=== PATIENT | female | born 1960 | race Caucasian/White ===

== ENCOUNTER 2020-12-06 21:56 | Emergency (ER) | payer OTHER, MEDICAID, SELFPAY ==
[2020-12-06 22:11] VITALS: BP 166/79; PULSE 79; RESP 14; TEMP 37.4; O2SAT 97; BMI 19.8
[2020-12-06] MEDS: ONDANSETRON 4 MG/2 ML INJ IV (22:47)
[2020-12-06] MEDS: SODIUM CHLORIDE 0.9% 1,000 ML 1000 ML IV (22:47)
[2020-12-06] MEDS: HYDROMORPHONE 0.5 MG INJ 1 MG IV ×2 (22:47→23:46)
[2020-12-06 22:54] LABS: Add Manual Diff / Slide Review NO; Basophils Absolute Auto 0 /uL (0-100); Basophils Percent Auto 0.3 % (0-2); Eosinophils Absolute Auto 0 /uL (0-450); Eosinophils Percent Auto 0.5 % (2-4); Hematocrit 32.8 % (36-46); Hemoglobin 10.5 g/dL (12.0-16.0); Lymphocytes Absolute Auto 500 /uL (1100-4500); Lymphocytes Percent Auto 6.9 % (25-40); Mean Corpuscular HGB Conc 32.1 % (30-36); Mean Corpuscular Hemoglobin 25.6 PG (26-34); Mean Corpuscular Volume 79.9 fL (80-100); Monocytes Absolute Auto 300 /uL (0-900); Monocytes Percent Auto 3.9 % (3-14); Neutrophils Absolute Auto 6800 /uL (1500-7000); Neutrophils Percent Auto 88.4 % (50-75); Platelet Count 204 X10^3/uL (150-400); Red Cell Distribution Width 16.7 % (11.6-14.8); White Blood Cell Count 7.7 X10^3/uL (4.5-11.0)
[2020-12-06 22:55] LABS: Alanine Aminotransferase 11 IU/L (<35); Albumin 3.7 g/dL (3.5-5.0); Albumin Globulin Ratio 1.2 (1.0-2.8); Alkaline Phosphatase 147 U/L (38-126); Aspartate Aminotransferase 29 IU/L (14-36); BUN Creatinine Ratio 10.3 (6-22); Bilirubin Total 0.5 mg/dL (0.2-1.3); Blood Urea Nitrogen 16 mg/dL (7-17); Calcium 8.8 mg/dL (8.4-10.2); Carbon Dioxide 29 mmol/L (22-32); Chloride 105 mmol/L (98-107); Estimated Glomerular Filt Rate 34.2 mL/min (>60); Globulin 3.2 g/dL (1.7-4.1); Glucose 112 mg/dL (70-100); HEMOLYSIS < 15 (0-50); Lipase 165 U/L (23-300); Potassium 3.2 mmol/L (3.4-5.1); Sodium 142 mmol/L (137-145); Total Protein 6.9 g/dL (6.3-8.2)
[2020-12-06 23:03] VITALS: PULSE 69; O2SAT 97
--- NOTE | 2020-12-06 23:06 | ED_ITS ---
HPI - General Adult General Chief complaint: Abdominal Pain Stated complaint: stomach cramps/vomiting, has stg 4 cancer Time Seen by Provider: 12/06/20 22:37 Source: patient and family Mode of arrival: Wheelchair History of Present Illness HPI narrative: 60-year-old woman with a history of metastatic appendiceal cancer, coronary artery disease with a 3 vessel CABG at 42 years of age currently anticoagulated on Xarelto, hypertension, depression and history of reflux for which she is on Pepcid. She has noticed that in last 2 days the re flexes gotten significantly worse. She complains of a ?empty? pain in her stomach. Her last CT was in November in follow-up for her appendiceal cancer. Her usual cancer related pain is typically in the right lower quadrant and for this she uses 30 mg of morphine twice a day with oxycodone for breakthrough pain. She found that t.i.d. use of the morphine left her too sedated. The pain that she is noting today is in the epigastric left upper quadrant significantly worse and not currently being well controlled with her usual narcotic regimen. She has not had significant constipation, vomiting, hematemesis, fevers, cough, palpitations. She and her daughter both note that she has been having inc reasing difficulty in wanting or ability to eat. They currently are considering the possibility of proceeding with palliative chemotherapy verses full palliative care with hospice Related Data Previous Rx's Medication Instructions Recorded pantoprazole [Protonix] 40 mg PO DAILY #30 tab 12/07/20 Allergies Allergy/AdvReac Type Severity Reaction Status Date / Time clopidogrel [From Plavix] Allergy Verified 12/06/20 22:15 ibuprofen Allergy Verified 12/06/20 22:15 Penicillins Allergy Verified 12/06/20 22:15 ramipril Allergy Verified 12/06/20 22:15 Review of Systems Review of Systems Narrative: Remainder of complete review of systems is otherwise unremarkable except for that included in the HPI. Patient History Medical History Cancer of appendix Coronary artery disease Depression Hypertension Social History Smoking Status: Current every day smoker Smoking Status: Current every day smoker alcohol intake frequency: 0-2 drinks per day Substance Use Type: does not use Exam Narrative Exam Narrative: General: Frail, pale, waves of rhythmic abdominal pain HEENT: Moist mucous membranes, normal sclera with reactive pupils, Respiratory: Lungs are clear to auscultation, no wheezing no rales no rhonchi. Full and symmetrical air movement Cardiac: Regular rate and rhythm no murmurs no bruits Abdomen: Scaphoid, diffusely tender without rebound or guarding Skin: Pale, Warm and dry, no rashes Neurologic: Globally weak but Grossly neurologically intact with no obvious asymmetries or abnormalities Extremities: No trauma, well perfused Psych: Cooperative, appropriate insight and affect Initial Vital Signs Initial Vital Signs: Vital Signs Temperature 99.3 F 12/06/20 22:11 Pulse Rate 79 12/06/20 22:11 Respiratory Rate 14 12/06/20 22:11 Blood Pressure 166/79 H 12/06/20 22:11 Pulse Oximetry 97 12/06/20 22:11 Course Orders Ordered: ED Orders 12/06/20 22:16 EKG-12 Lead Stat 12/06/20 22:35 Complete Blood Count AUTO DIFF Stat Comprehensive Metabolic Panel Stat Lipase Stat Hydromorphone HCl (Hydromorphone 0.5 Mg Inj) 1 mg IV Q15MIN PRN PRN Reason: Pain, Last Admin: 12/06/20 23:46 Dose: 1 mg Documented by: JOSÉ LUIS Admin: 12/06/20 22:47 Dose: 1 mg Documented by: JOSÉ LUIS Discontinued Medications Al Hydrox/Mg Hydrox/Simethicone 20 ml/ Lidocaine HCl 15 ml 0 ml PO NOW ONE Stop: 12/06/20 23:50 Last Admin: 12/06/20 23:58 Dose: 35 ml Documented by: JOSÉ LUIS Sodium Chloride (Normal Saline 0.9%) 1,000 mls @ 1,000 mls/hr IV BOLUS ONE Stop: 12/06/20 23:36 Last Admin: 12/06/20 22:47 Dose: 1,000 mls/hr Documented by: JOSÉ LUIS POTASSIUM CHLORIDE IN WATER (Potassium Cl 10 Meq/100 Ml Jessie) 10 meq in 100 mls @ 100 mls/hr IV Q1H BEVERLY Stop: 12/07/20 01:14 Last Admin: 12/07/20 01:02 Dose: 100 mls/hr Documented by: JOSÉ LUIS Infusion: 12/07/20 00:38 Dose: 100 mls/hr Documented by: JOSÉ LUIS Admin: 12/06/20 23:38 Dose: 100 mls/hr Documented by: JOSÉ LUIS Ondansetron HCl (Ondansetron 4 Mg/2 Ml Inj) 4 mg IV NOW ONE Stop: 12/06/20 22:42 Last Admin: 12/06/20 22:47 Dose: 4 mg Documented by: JOSÉ LUIS Pantoprazole Sodium (Pantoprazole 40 Mg Vial) 80 mg IV NOW ONE Stop: 12/06/20 23:50 Last Admin: 12/06/20 23:59 Dose: 80 mg Documented by: JOSÉ LUIS Potassium Chloride (Potassium Chloride 20 Meq Tab) 40 meq PO NOW ONE Stop: 12/06/20 23:07 Last Admin: 12/06/20 23:37 Dose: 40 meq Documented by: JOSÉ LUIS Vital Signs Vital signs: Vital Signs - 8 hr 12/06/20 22:11 12/06/20 23:03 12/06/20 23:30 Temperature 99.3 F Pulse Rate 79 69 73 Respiratory Rate 14 Blood Pressure 166/79 H 153/72 H Pulse Oximetry 97 97 97 Medical Decision Making Medical Records Medical records reviewed: Yes I reviewed the patient's medical records. Lab Data Lab results reviewed: Yes I reviewed the patient's lab results. Result diagrams: 12/06/20 22:35 12/06/20 22:35 Labs: Lab Results 12/06/20 12/06/20 Range/Units 22:35 22:35 WBC 7.7 (4.5-11.0) X10^3/uL RBC 4.10 (4.0-5.2) X10^6/uL Hgb 10.5 L (12.0-16.0) g/dL Hct 32.8 L (36-46) % MCV 79.9 L (80-100) fL MCH 25.6 L (26-34) PG MCHC 32.1 (30-36) % RDW 16.7 H (11.6-14.8) % Plt Count 204 (150-400) X10^3/uL Neut % (Auto) 88.4 H (50-75) % Lymph % (Auto) 6.9 L (25-40) % [place] % (Auto) 3.9 (3-14) % Eos % (Auto) 0.5 L (2-4) % Baso % (Auto) 0.3 (0-2) % Neut # (Auto) 6800 (1529-6118) /uL Lymph # (Auto) 500 L (4375-1130) /uL [place] # (Auto) 300 (0-900) /uL Eos # (Auto) 0 (0-450) /uL Baso # (Auto) 0 (0-100) /uL Sodium 142 (137-145) mmol/L Potassium 3.2 L (3.4-5.1) mmol/L Chloride 105 (98-107) mmol/L Carbon Dioxide 29 (22-32) mmol/L BUN 16 (7-17) mg/dL Creatinine 1.55 H (0.52-1.04) mg/dL Estimated GFR 34.2 L (>60) mL/min BUN/Creatinine Ratio 10.3 (6-22) Glucose 112 H (70-100) mg/dL Calcium 8.8 (8.4-10.2) mg/dL Total Bilirubin 0.5 (0.2-1.3) mg/dL AST 29 (14-36) IU/L ALT 11 (<35) IU/L Alkaline Phosphatase 147 H (38-126) U/L Total Protein 6.9 (6.3-8.2) g/dL Albumin 3.7 (3.5-5.0) g/dL Globulin 3.2 (1.7-4.1) g/dL Albumin/Globulin Ratio 1.2 (1.0-2.8) Lipase 165 (23-300) U/L [facility] Narrative Medical decision making narrative: 60-year-old woman presents with new abdominal pain in setting of metastatic appendiceal cancer. Labs were reassuring with no evidence of acute GI bleeding/anemia, pancreatitis cholecystitis, bowel obstruction. With shared decision-making we opted to not proceed with any additional imaging of her abdomen. She did get significant improvement with a GI cocktail. Will have her discontinue Pepcid changed Protonix and consider Maalox for severe pain at home. Will not make any changes at this point to her chronic cancer related opioid pain management program. 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 Please continue your current 30 mg of morphine twice a day with the oxycodone as needed for pain control Please stop the Pepcid and in its place add Protonix. 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 Try to use as many calorie dense foods as possible think whole milk, ice cream etc.. If you find that you are worse, please feel free to return to the ER Prescriptions: New pantoprazole [Protonix] 40 mg tablet,delayed release (DR/EC) 40 mg PO DAILY Qty: 30 RF: 0
[2020-12-06 23:30] VITALS: BP 153/72; PULSE 73; O2SAT 97
[2020-12-06] MEDS: POTASSIUM CHLORIDE 20 MEQ TAB 40 MEQ PO (23:37)
[2020-12-06] MEDS: POTASSIUM CHLORIDE IN WATER 10 MEQ/100 ML PIGGYBACK 100 MEQ IV (23:38)
[2020-12-06] MEDS: MAG HYDROX/ALUMINUM/SIMETH SUS 20 ML, LIDOCAINE VISCOUS 2% 15 ML PO (23:58)
[2020-12-06] MEDS: PANTOPRAZOLE 40 MG VIAL 80 MG IV (23:59)
[2020-12-07] VITALS: BP 139/64; PULSE 77; O2SAT 97
[2020-12-07 00:30] VITALS: BP 136/60; PULSE 74; O2SAT 93
[2020-12-07 01:00] VITALS: BP 145/67; PULSE 76; O2SAT 92
[2020-12-07] MEDS: POTASSIUM CHLORIDE IN WATER 10 MEQ/100 ML PIGGYBACK 100 MEQ IV (01:02)
[2020-12-07 01:30] VITALS: BP 152/70; PULSE 76; O2SAT 92
[2020-12-07 02:00] VITALS: BP 159/74; PULSE 79; O2SAT 91
[2020-12-07] MEDS: ONDANSETRON 4 MG/2 ML INJ IV (02:14)
[2020-12-07] MEDS: HYDROMORPHONE 0.5 MG INJ 1 MG IV (02:18)
--- NOTE | 2020-12-07 02:40 | PC.NURSE ---
After IV KCL finished, I woke pt to discharge her home. Pt was grimacing and c/o nausea and severe pain. Dr Macario notified, order received for zofran 4mg IV. Pt medicated with zofran and 1mg dialudid without relief, pt still appears very uncomfortable. Pt states she did not take her second dose of ER morphine this evening. Dr Macario at bedside for reevaulation, plan now to medicate with morphine and phenergan. Pt agreeable.
[2020-12-07] MEDS: MORPHINE ER 30 MG TABLET PO (02:49)
[2020-12-07] MEDS: PROMETHAZINE 25 MG TABLET PO (02:49)
[2020-12-07 02:58] VITALS: BP 159/74; PULSE 81; RESP 14; TEMP 37.3; O2SAT 94
--- NOTE | 2020-12-07 19:40 | PC.NURSE ---
Pt's daughter, Leeann, here to supervisor opening and picking prescriptions that were not given early this morning on discharge. Daughter stated that the pt is not doing well and asked for a dose of phenergan to take home. Dr Macario notified, order received to to give a dose of oral phenergan to go. When attempting to remove med from pyxis, pt's profile was not there. I phoned [facility], troubleshooting attemts failed. I spoke with the daughter, updated her to the situation, suggested she could take paper prescriptions to 24 hour pharmacy or bring her mom back for reeval.She was agreeable.
== END 2020-12-07 02:59 | disposition home or self-care (01) ==
PROVIDERS: Emergency Provider Emergency Medicine
DX: R10.9 Unspecified abdominal pain (principal); C18.1 Malignant neoplasm of appendix
CPT/HCPCS: 36415; 80053; 83690; 85025; 93005; 96361; 96374; 96375; 96376; 99284; C9113; J1170; J2405

== ENCOUNTER 2020-12-22 21:50 | Emergency (ER) | payer OTHER, MEDICAID, SELFPAY ==
[2020-12-22 22:02] VITALS: BP 160/86; PULSE 84; RESP 15; TEMP 36.7; O2SAT 97; BMI 18.8
--- NOTE | 2020-12-22 22:57 | ED_ITS ---
HPI - Abdominal Pain General Chief Complaint: Abdominal Pain Stated Complaint: ST 4 APENDIX CX VOMITING Time Seen by Provider: 12/22/20 22:57 Source: patient and family Mode of arrival: Wheelchair Limitations: no limitations History of Present Illness HPI narrative: 60F daily smoker with known history of stage 4 appendiceal cancer with palliative goals presents with nausea, vomiting and pain over the course of the day. She has a supply have Phenergan at home but has run out of her Zofran. She normally takes large doses of morphine daily. She has had no fever or chills. She is not dizzy nor weak or lightheaded but has had a poor appetite, poor oral intake. MD complaint: abdominal pain Onset (ago): hour(s) Pain Consistency: constant Location: diffuse Severity: moderate Quality: cramping and aching Relieving factors: rest Exacerbating factors: movement Associated symptoms: nausea and vomiting Related Data Previous Rx's Medication Instructions Recorded morphine 10 mg PO DAILY #30 cap 12/07/20 pantoprazole [Protonix] 40 mg PO DAILY #30 tab 12/07/20 promethazine 25 mg PO TID PRN #30 tab 12/07/20 ondansetron 4 mg PO TID-QID PRN #10 tab 12/23/20 potassium chloride 20 meq PO BID #14 tab 12/23/20 promethazine 25 mg PO TID PRN #30 tab 12/23/20 Allergies Allergy/AdvReac Type Severity Reaction Status Date / Time clopidogrel [From Plavix] Allergy Verified 12/06/20 22:15 ibuprofen Allergy Verified 12/06/20 22:15 Penicillins Allergy Verified 12/06/20 22:15 ramipril Allergy Verified 12/06/20 22:15 Review of Systems Constitutional Constitutional: Denies chills, Denies fatigue, Denies fever(s), Denies frequent falls, Denies lethargy and Denies weakness Eyes Eyes: Denies change in vision, Denies eye discharge, Denies irritation and Denies loss of vision ENT Ears, Nose, Mouth, and Throat: Denies change in voice, Denies dizziness, Denies neck pain, Denies sore throat and Denies throat swelling Cardiovascular Cardiovascular: Denies chest pain, Denies irregular heart rhythm, Denies lightheadedness, Denies palpitations, Denies dyspnea, Denies dyspnea on exertion and Denies orthopnea Respiratory Respiratory: Denies cough, Denies dyspnea, Denies dyspnea on exertion and Denies wheezing Gastrointestinal Gastrointestinal: Reports abdominal pain, Denies change in bowel habits, Denies diarrhea, Reports nausea and Reports vomiting Musculoskeletal Musculoskeletal: Denies neck pain and Denies numbness Integumentary/Breasts Skin/Breast: Denies pruritus, Denies erythema, Denies rash and Denies wounds Neurologic Neurologic: Denies behavioral changes, Denies confusion, Denies dizziness, Denies frequent falls, Denies loss of vision, Denies numbness and Denies weakness Psychiatric Psychiatric: Denies anxiety, Denies behavioral changes, Denies confusion, Denies depression, Denies homicidal ideation and Denies suicidal ideation Endocrine Endocrine: Denies fatigue, Denies flushing and Denies palpitations Hematologic/Lymphatic Hematologic/Lymphatic: Denies easy bruising Allergic/Immunologic Allergic/Immunologic: Denies urticaria, Denies throat swelling and Denies wheezing Patient History Medical History Cancer of appendix Coronary artery disease Depression Hypertension Social History Smoking Status: Current every day smoker Smoking Status: Current every day smoker alcohol intake frequency: 0-2 drinks per day Substance Use Type: does not use Exam Narrative Exam Narrative: GENERAL: [60] year old patient appears older than stated age. Thin, chronically ill, temporal wasting HEAD: Atraumatic. Normocephalic. EYES: Pupils equal round and reactive. Extraocular motions intact. No scleral icterus. No injection or drainage. ENT: Dry mucous membranes Nose without bleeding, purulent drainage. Throat without erythema, tonsillar hypertrophy or exudate. Airway patent. NECK: Trachea midline. Non tender CARDIOVASCULAR: Regular rate and rhythm without murmurs, gallops, or rubs. RESPIRATORY: Clear to auscultation. Breath sounds equal bilaterally. No wheezes, rales, or rhonchi. GASTROINTESTINAL: Abdomen soft, generalized tenderness, nondistended. EXTREMITIES: No edema or joint tenderness. BACK: Nontender without deformity or crepitance. No flank tenderness. NEURO: AOx3. SKIN: Poor skin turgor No rash or erythema of visible areas Initial Vital Signs Initial Vital Signs: Vital Signs Temperature 98.0 F 12/22/20 22:02 Pulse Rate 84 12/22/20 22:02 Respiratory Rate 15 12/22/20 22:02 Blood Pressure 160/86 H 12/22/20 22:02 Pulse Oximetry 97 12/22/20 22:02 Course Orders Ordered: ED Orders 12/22/20 22:50 Complete Blood Count AUTO DIFF Stat Comprehensive Metabolic Panel Stat Ondansetron HCl (Ondansetron 4 Mg/2 Ml Inj) 4 mg IV Q4HR PRN PRN Reason: Nausea And Vomiting Last Admin: 12/23/20 00:00 Dose: 4 mg Documented by: JOSÉ LUIS Discontinued Medications Hydromorphone HCl (Hydromorphone 1 Mg Inj) 1 mg IV NOW ONE Stop: 12/22/20 23:56 Last Admin: 12/23/20 00:00 Dose: 1 mg Documented by: JOSÉ LUIS Sodium Chloride (Normal Saline 0.9%) 1,000 mls @ 1,000 mls/hr IV BOLUS ONE Stop: 12/23/20 00:16 Last Infusion: 12/23/20 01:45 Dose: 0 mls/hr Documented by: Admin: 12/23/20 00:00 Dose: 1,000 mls/hr Documented by: JOSÉ LUIS Sodium Chloride (Normal Saline 0.9%) 1,000 mls @ 1,000 mls/hr IV BOLUS ONE Stop: 12/23/20 02:44 Last Infusion: 12/23/20 02:59 Dose: 0 mls/hr Documented by: Admin: 12/23/20 01:47 Dose: 1,000 mls/hr Documented by: MILA Labetalol HCl (Labetalol 20 Mg/4 Ml Syringe) 10 mg IV NOW ONE Stop: 12/23/20 00:55 Last Admin: 12/23/20 01:00 Dose: 10 mg Documented by: MILA Ondansetron HCl (Ondansetron 4 Mg Odt Prepack) 1 bottle MISC SEEINSTR ONE Stop: 12/23/20 03:48 Vital Signs Vital signs: Vital Signs - 8 hr 12/22/20 22:02 12/23/20 01:00 12/23/20 01:30 Temperature 98.0 F Pulse Rate 84 84 80 Respiratory Rate 15 16 Blood Pressure 160/86 H 180/81 H 147/71 H Pulse Oximetry 97 100 12/23/20 02:00 12/23/20 02:21 12/23/20 02:30 Temperature Pulse Rate 84 84 85 Respiratory Rate Blood Pressure 151/70 H 161/75 H Pulse Oximetry 99 98 99 12/23/20 02:45 12/23/20 03:00 12/23/20 03:15 Temperature Pulse Rate 86 86 87 Respiratory Rate Blood Pressure 171/80 H 171/77 H 163/75 H Pulse Oximetry 99 100 98 MDM - Abdominal Pain Lab Data Result diagrams: 12/22/20 22:50 12/22/20 22:50 Labs: Lab Results 12/22/20 12/22/20 Range/Units 22:50 22:50 WBC 7.2 (4.5-11.0) X10^3/uL RBC 3.46 L (4.0-5.2) X10^6/uL Hgb 9.0 L (12.0-16.0) g/dL Hct 27.3 L (36-46) % MCV 78.8 L (80-100) fL MCH 25.9 L (26-34) PG MCHC 32.9 (30-36) % RDW 17.2 H (11.6-14.8) % Plt Count 167 (150-400) X10^3/uL Neut % (Auto) 87.4 H (50-75) % Lymph % (Auto) 7.8 L (25-40) % [place] % (Auto) 4.0 (3-14) % Eos % (Auto) 0.3 L (2-4) % Baso % (Auto) 0.5 (0-2) % Neut # (Auto) 6300 (2081-2757) /uL Lymph # (Auto) 600 L (9646-7516) /uL [place] # (Auto) 300 (0-900) /uL Eos # (Auto) 0 (0-450) /uL Baso # (Auto) 0 (0-100) /uL Sodium 135 L (137-145) mmol/L Potassium 3.2 L (3.4-5.1) mmol/L Chloride 100 (98-107) mmol/L Carbon Dioxide 25 (22-32) mmol/L BUN 22 H (7-17) mg/dL Creatinine 2.14 H (0.52-1.04) mg/dL Estimated GFR 23.6 L (>60) mL/min BUN/Creatinine Ratio 10.3 (6-22) Glucose 88 (70-100) mg/dL Calcium 8.3 L (8.4-10.2) mg/dL Total Bilirubin 0.7 (0.2-1.3) mg/dL AST 21 (14-36) IU/L ALT 9 (<35) IU/L Alkaline Phosphatase 118 (38-126) U/L Total Protein 5.6 L (6.3-8.2) g/dL Albumin 3.0 L (3.5-5.0) g/dL Globulin 2.6 (1.7-4.1) g/dL Albumin/Globulin Ratio 1.2 (1.0-2.8) MDM Narrative Medical decision making narrative: Patient demonstrates tremendous improvement after the above-stated therapies. She has had bump in her creatinine along with dry mucous membranes and poor skin turgor suggest dehydration. This is greatly improved after fluids did not repeat blood work as the patient is feeling somewhat better and requesting discharge. Her potassium is slightly low and I did write a prescription for supplement but we discussed dietary options and I recommended foods high in potassium that might be easier on her palate and she laughed and seem to understand this was often times these year and better way to go. She has been given extensive return precautions and had questions answered to her apparent satisfaction Discharge Plan Departure Patient Disposition: Home Clinical Impression: Acute dehydration, Acute hypokalemia Vomiting Qualifiers: Vomiting type: unspecified Vomiting Intractability: non-intractable Nausea presence: with nausea Qualified Code(s): R11.2 - Nausea with vomiting, unspecified Instructions: DI for Dehydration -- Adult, DI for Hypokalemia, DI for Vomiting -- Adult Activity Restrictions/Additional Instructions: *You have been diagnosed with [vomiting, dehydration and low potassium (3.2)] *What to do: *Please continue to take your regular medications as directed. [x ] New medication prescriptions sent to your pharmacy: [[facility] in [place] ] [ ] New medication written as a paper prescription [ ] No new medications given *Please follow up with your primary care provider in 2-3 days, call for an appointment. Let them know you were seen in the Emergency Department and that we ask that you be seen in follow up. We will electronically transmit a record of today's note if your PCP is in our system *If you do not have a primary care provider please contact the [facility] Resource line at [phone]. They will ask some questions about your medical history and help get you set up with a doctor in the community. *Return to Emergency Department if you should have any new, worsening or concerning symptoms, such as [fever greater than 101 F, shaking chills, worsening pain, persistent vomiting or other bothersome symptoms] Prescriptions: New ondansetron 4 mg tablet,disintegrating 4 mg PO TID-QID PRN (Reason: nausea and vomiting) Qty: 10 RF: 0 promethazine 25 mg tablet 25 mg PO TID PRN (Reason: nausea and vomiting) Qty: 30 RF: 0 potassium chloride 20 mEq tablet extended release 20 meq PO BID Qty: 14 RF: 0 No Action pantoprazole [Protonix] 40 mg tablet,delayed release (DR/EC) 40 mg PO DAILY Qty: 30 RF: 0 promethazine 25 mg tablet 25 mg PO TID PRN (Reason: nausea and vomiting) Qty: 30 RF: 0 morphine 10 mg capsule,extend.release pellets 10 mg PO DAILY Qty: 30 RF: 0
[2020-12-22 23:58] LABS: Add Manual Diff / Slide Review NO; Basophils Absolute Auto 0 /uL (0-100); Basophils Percent Auto 0.5 % (0-2); Eosinophils Absolute Auto 0 /uL (0-450); Eosinophils Percent Auto 0.3 % (2-4); Hematocrit 27.3 % (36-46); Lymphocytes Absolute Auto 600 /uL (1100-4500); Lymphocytes Percent Auto 7.8 % (25-40); Mean Corpuscular HGB Conc 32.9 % (30-36); Mean Corpuscular Hemoglobin 25.9 PG (26-34); Mean Corpuscular Volume 78.8 fL (80-100); Monocytes Absolute Auto 300 /uL (0-900); Neutrophils Absolute Auto 6300 /uL (1500-7000); Neutrophils Percent Auto 87.4 % (50-75); Platelet Count 167 X10^3/uL (150-400); Red Blood Cell Count 3.46 X10^6/uL (4.0-5.2); Red Cell Distribution Width 17.2 % (11.6-14.8); White Blood Cell Count 7.2 X10^3/uL (4.5-11.0)
[2020-12-23] VITALS (12 sets, daily range): BP systolic 147–180; BP diastolic 63–81; PULSE 80–88; RESP 16; TEMP 36.9; O2SAT 97–100
[2020-12-23] MEDS: ONDANSETRON 4 MG/2 ML INJ IV
[2020-12-23] MEDS: HYDROMORPHONE 1 MG INJ IV
[2020-12-23 00:09] LABS: Alanine Aminotransferase 9 IU/L (<35); Albumin Globulin Ratio 1.2 (1.0-2.8); Alkaline Phosphatase 118 U/L (38-126); Aspartate Aminotransferase 21 IU/L (14-36); BUN Creatinine Ratio 10.3 (6-22); Bilirubin Total 0.7 mg/dL (0.2-1.3); Blood Urea Nitrogen 22 mg/dL (7-17); Calcium 8.3 mg/dL (8.4-10.2); Carbon Dioxide 25 mmol/L (22-32); Chloride 100 mmol/L (98-107); Estimated Glomerular Filt Rate 23.6 mL/min (>60); Globulin 2.6 g/dL (1.7-4.1); Glucose 88 mg/dL (70-100); HEMOLYSIS < 15 (0-50); Potassium 3.2 mmol/L (3.4-5.1); Sodium 135 mmol/L (137-145); Total Protein 5.6 g/dL (6.3-8.2)
[2020-12-23] MEDS: LABETALOL 20 MG/4 ML SYRINGE 10 MG IV (01:00)
[2020-12-23] MEDS: SODIUM CHLORIDE 0.9% 1,000 ML 1000 ML IV ×2 (01:47)
[2020-12-23] MEDS: ONDANSETRON 4 MG ODT PREPACK 1 BOTTLE MISC (04:03)
== END 2020-12-23 04:14 | disposition home or self-care (01) ==
PROVIDERS: Emergency Provider Emergency Medicine
DX: E86.0 Dehydration (principal); E87.6 Hypokalemia; R11.2 Nausea with vomiting, unspecified; Z85.038 Personal history of other malignant neoplasm of large intestine
CPT/HCPCS: 36415; 80053; 85025; 96361; 96374; 96375; 99284; J1170; J1642; J2405

== ENCOUNTER 2020-12-26 12:01 | Emergency (ER) | payer OTHER, MEDICAID, SELFPAY ==
[2020-12-26 12:10] VITALS: BP 209/107; PULSE 102; RESP 15; TEMP 37.2; O2SAT 97; BMI 19.8
[2020-12-26 12:39] LABS: Add Manual Diff / Slide Review NO; Basophils Absolute Auto 0 /uL (0-100); Basophils Percent Auto 0.4 % (0-2); Eosinophils Absolute Auto 0 /uL (0-450); Eosinophils Percent Auto 0.5 % (2-4); Hematocrit 31.3 % (36-46); Hemoglobin 10.2 g/dL (12.0-16.0); Lymphocytes Absolute Auto 1000 /uL (1100-4500); Lymphocytes Percent Auto 14.3 % (25-40); Mean Corpuscular HGB Conc 32.7 % (30-36); Mean Corpuscular Hemoglobin 25.9 PG (26-34); Monocytes Absolute Auto 500 /uL (0-900); Monocytes Percent Auto 6.9 % (3-14); Neutrophils Absolute Auto 5700 /uL (1500-7000); Neutrophils Percent Auto 77.9 % (50-75); Platelet Count 214 X10^3/uL (150-400); Red Blood Cell Count 3.96 X10^6/uL (4.0-5.2); Red Cell Distribution Width 17.6 % (11.6-14.8); White Blood Cell Count 7.3 X10^3/uL (4.5-11.0)
[2020-12-26 12:50] LABS: Alanine Aminotransferase 9 IU/L (<35); Albumin 3.1 g/dL (3.5-5.0); Albumin Globulin Ratio 1.1 (1.0-2.8); Alkaline Phosphatase 109 U/L (38-126); Aspartate Aminotransferase 22 IU/L (14-36); BUN Creatinine Ratio 11.8 (6-22); Bilirubin Total 0.4 mg/dL (0.2-1.3); Blood Urea Nitrogen 17 mg/dL (7-17); Calcium 8.4 mg/dL (8.4-10.2); Carbon Dioxide 28 mmol/L (22-32); Chloride 101 mmol/L (98-107); Estimated Glomerular Filt Rate 37.3 mL/min (>60); Globulin 2.7 g/dL (1.7-4.1); Glucose 111 mg/dL (70-100); HEMOLYSIS < 15 (0-50); Lipase 56 U/L (23-300); Potassium 2.9 mmol/L (3.4-5.1); Sodium 137 mmol/L (137-145); Total Protein 5.8 g/dL (6.3-8.2)
[2020-12-26] MEDS: ONDANSETRON 4 MG/2 ML INJ IV ×2 (13:16→17:51)
[2020-12-26 13:34] LABS: Magnesium 1.6 mg/dL (1.6-2.3)
[2020-12-26 13:55] VITALS: BP 202/102; PULSE 66; RESP 16; O2SAT 100
[2020-12-26] MEDS: MORPHINE 4 MG/ML INJ IV (14:00)
--- NOTE | 2020-12-26 14:13 | ED_ITS ---
HPI - Abdominal Pain General Chief Complaint: Abdominal Pain Stated Complaint: discomfort of the stomach area/heartburn Time Seen by Provider: 12/26/20 14:13 Source: patient and family Mode of arrival: Wheelchair Limitations: no limitations History of Present Illness HPI narrative: This is a 60-year-old female who comes emergency department abdominal pain, nausea but no active vomiting decrease in stool output. Patient states she has had increasing abdominal discomfort, distention and is worried about bowel obstruction. 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 Patient has been taking morphine orally at home but without adequate pain control. Patient has not had any fevers. She denies any chest pain or shortness of breath but has had quite a bit of epigastric discomfort which feels like heartburn to her. She is currently only taking her medications for comfort and out of her antihypertensives. Patient has had prior cardiovascular bypass. She has also had abdominal surgeries in the past. She follows with Dr. Sutherland [facility] [place] Related Data Previous Rx's Medication Instructions Recorded morphine 10 mg PO DAILY #30 cap 12/07/20 pantoprazole [Protonix] 40 mg PO DAILY #30 tab 12/07/20 promethazine 25 mg PO TID PRN #30 tab 12/07/20 ondansetron 4 mg PO TID-QID PRN #10 tab 12/23/20 potassium chloride 20 meq PO BID #14 tab 12/23/20 promethazine 25 mg PO TID PRN #30 tab 12/23/20 hydromorphone [Dilaudid] 1 mg PO Q4H PRN #100 ml 12/26/20 lidocaine HCl [Lidocaine Viscous] 1 applic MUCOUS MEMBRANE Q6H PRN 12/26/20 #100 ml Allergies Allergy/AdvReac Type Severity Reaction Status Date / Time clopidogrel [From Plavix] Allergy Verified 12/26/20 12:13 felodipine [From Plendil] Allergy Verified 12/26/20 12:13 ibuprofen Allergy Verified 12/26/20 12:13 Penicillins Allergy Verified 12/26/20 12:13 ramipril Allergy Verified 12/26/20 12:13 Review of Systems Review of Systems ROS Unobtainable: All systems reviewed & are unremarkable except as noted in HPI and below Patient History Medical History Cancer of appendix Coronary artery disease Depression Hypertension Social History Smoking Status: Current every day smoker Smoking Status: Current every day smoker alcohol intake frequency: 0-2 drinks per day Substance Use Type: does not use Exam Narrative Exam Narrative: GENERAL: Alert and oriented x three, chronically ill-appearing female in moderate discomfort. HEENT: Head normocephalic, atraumatic, EOMI, pupils reactive, face symmetric, moist mucous membranes NECK: Supple, full range of motion CARDIOVASCULAR: Regular rate and rhythm without murmurs, rubs or gallops. RESPIRATORY: Breath sounds equal bilaterally, no wheezes rales or rhonchi. ABDOMEN: Soft, generalized tenderness. Mildly distended. hyperactive bowel sounds all 4 quadrants. No guarding or rebound, rigidity, no mass. : No CVA tenderness EXTREMITIES: Normal range of motion, no clubbing or edema. Neurovascularly intact NEUROLOGICAL: Cranial nerves II through XII grossly intact. Moving all extremities SKIN: Warm, dry, no petechiae, no rashes or lesions. Initial Vital Signs Initial Vital Signs: Vital Signs Temperature 98.9 F 12/26/20 12:10 Pulse Rate 102 H 12/26/20 12:10 Respiratory Rate 15 12/26/20 12:10 Blood Pressure 209/107 H 12/26/20 12:10 Pulse Oximetry 97 12/26/20 12:10 Course Orders Ordered: ED Orders 12/26/20 12:16 EKG-12 Lead Stat 12/26/20 12:30 Complete Blood Count AUTO DIFF Stat Comprehensive Metabolic Panel Stat Lipase Stat Magnesium Stat 12/26/20 14:21 CT abdomen pelvis w con Stat Discontinued Medications Al Hydrox/Mg Hydrox/Simethicone 20 ml/ Lidocaine HCl 15 ml 0 ml PO NOW ONE Stop: 12/26/20 14:24 Last Admin: 12/26/20 14:51 Dose: 20 ml Documented by: JAYANT Hydromorphone HCl (Hydromorphone 1 Mg Inj) 1 mg IV NOW ONE Stop: 12/26/20 14:22 Last Admin: 12/26/20 14:52 Dose: 1 mg Documented by: JAYANT Hydromorphone HCl (Hydromorphone 1 Mg Inj) 1 mg IV NOW ONE Stop: 12/26/20 16:23 Last Admin: 12/26/20 16:27 Dose: 1 mg Documented by: ROSEMARY Morphine Sulfate (Morphine 4 Mg/Ml Inj) 4 mg IV NOW ONE Stop: 12/26/20 13:55 Last Admin: 12/26/20 14:00 Dose: 4 mg Documented by: JAYANT Ondansetron HCl (Ondansetron 4 Mg/2 Ml Inj) 4 mg IV NOW ONE Stop: 12/26/20 12:17 Last Admin: 12/26/20 13:16 Dose: 4 mg Documented by: JAYANT Ondansetron HCl (Ondansetron 4 Mg/2 Ml Inj) 4 mg IV NOW ONE Stop: 12/26/20 17:47 Last Admin: 12/26/20 17:51 Dose: 4 mg Documented by: ROSEMARY Pantoprazole Sodium (Pantoprazole 40 Mg Vial) 40 mg IV NOW ONE Stop: 12/26/20 14:24 Last Admin: 12/26/20 14:51 Dose: 40 mg Documented by: JAYANT Potassium Chloride (Potassium Chloride 20 Meq Tab) 40 meq PO NOW ONE Stop: 12/26/20 14:26 Last Admin: 12/26/20 14:52 Dose: 40 meq Documented by: JAYANT Vital Signs Vital signs: Vital Signs - 8 hr 12/26/20 12:10 12/26/20 13:55 12/26/20 15:00 Temperature 98.9 F Pulse Rate 102 H 66 60 Respiratory Rate 15 16 Blood Pressure 209/107 H 202/102 H Pulse Oximetry 97 100 95 12/26/20 15:46 12/26/20 16:59 12/26/20 18:17 Temperature Pulse Rate 90 71 68 Respiratory Rate 18 12 16 Blood Pressure 193/105 H 195/88 H 201/111 H Pulse Oximetry 96 95 99 MDM - Abdominal Pain Lab Data Attestation: I reviewed the patient's lab results. Result diagrams: 12/26/20 12:30 12/26/20 12:30 Labs: Lab Results 12/26/20 12/26/20 12/26/20 Range/Units 12:30 12:30 12:30 WBC 7.3 (4.5-11.0) X10^3/uL RBC 3.96 L (4.0-5.2) X10^6/uL Hgb 10.2 L (12.0-16.0) g/dL Hct 31.3 L (36-46) % MCV 79.0 L (80-100) fL MCH 25.9 L (26-34) PG MCHC 32.7 (30-36) % RDW 17.6 H (11.6-14.8) % Plt Count 214 (150-400) X10^3/uL Neut % (Auto) 77.9 H (50-75) % Lymph % (Auto) 14.3 L (25-40) % [place] % (Auto) 6.9 (3-14) % Eos % (Auto) 0.5 L (2-4) % Baso % (Auto) 0.4 (0-2) % Neut # (Auto) 5700 (7059-7681) /uL Lymph # (Auto) 1000 L (5869-5022) /uL [place] # (Auto) 500 (0-900) /uL Eos # (Auto) 0 (0-450) /uL Baso # (Auto) 0 (0-100) /uL Sodium 137 (137-145) mmol/L Potassium 2.9 L (3.4-5.1) mmol/L Chloride 101 (98-107) mmol/L Carbon Dioxide 28 (22-32) mmol/L BUN 17 (7-17) mg/dL Creatinine 1.44 H (0.52-1.04) mg/dL Estimated GFR 37.3 L (>60) mL/min BUN/Creatinine Ratio 11.8 (6-22) Glucose 111 H (70-100) mg/dL Calcium 8.4 (8.4-10.2) mg/dL Magnesium 1.6 (1.6-2.3) mg/dL Total Bilirubin 0.4 (0.2-1.3) mg/dL AST 22 (14-36) IU/L ALT 9 (<35) IU/L Alkaline Phosphatase 109 (38-126) U/L Total Protein 5.8 L (6.3-8.2) g/dL Albumin 3.1 L (3.5-5.0) g/dL Globulin 2.7 (1.7-4.1) g/dL Albumin/Globulin Ratio 1.1 (1.0-2.8) Lipase 56 (23-300) U/L Imaging Data CT scan - abdomen/pelvis: Radiologist's Impression: [address] [id number] Scan ReportSigned Patient: Matthew Edwards KMR#: [id number]: 2Acct:[id number]/Sex: 60 / FDate of Service: 12/26/20Loc: EDAccession Number: [id number] Procedure: CT abdomen pelvis w con Ordering Provider: Tequila Vitale D.O. PROCEDURE: CT ABDOMEN PELVIS W CON INDICATIONS: Abdominal pain, history of prior appendiceal cancer. TECHNIQUE: After the administration of oral and intravenous contrast, axial sections were acquired from the lung bases to the pubic symphysis. Coronal and sagittal reformats were performed. For radiation dose reduction, the following was used: automated exposure control, adjustment of mA and/or kV according to patient size. COMPARISON:None. FINDINGS: Image quality: Excellent. Lung bases: Unremarkable. Heart: No significant findings. ABDOMEN: Liver: Unremarkable except for mild intrahepatic biliary distension.. Gallbladder: Previously resected. Biliary ducts: Common duct dilated to 13 mm. Pancreas: Unremarkable. Spleen: Unremarkable. Adrenal Glands: Unremarkable. Kidneys and Ureters: Diminutive left kidney, hydronephrotic right kidney with what appears to be a double pigtail ureteral catheter crossing from bladder into the renal pelvis. There is abnormal soft tissue thickening along the retroperitoneum encasing the ureter superiorly on the right. This is best seen centered on series 2, image 41. Stomach and Bowel: Stomach contains fluid but is not overly distended . Small bowel loops are fluid dilated, measuring up to 4.6 cm in diameter through the abdomen and into the pelvisPeritoneum: There is abnormal intraperitoneal fluid best seen in the perihepatic and to a lesser degree the perisplenic spaces. It also interdigitates between small bowel loops. No free air. Ventral Wall: No hernia. Abdominal Nodes: No retroperitoneal or mesenteric adenopathy by size criteria. Vessels: Aorta and inferior vena cava are normal in size. PELVIS: Pelvic Organs: Unremarkable except for a small amount of fluid within the endometrial canal in this patient who is presumably postmenopausal. Bladder: Unremarkable. Pelvic Nodes: No enlarged lymph nodes but there is nodularity involving the anterior peritoneal space consistent with peritoneal carcinomatosis best seen centered on series 2, image 61 present at and just to the right of midline. Also, at the right lower quadrant there may be tumor nodularity in an area measuring up to 5.2 cm AP and 3.3 cm in the expected region of the appendix open (series 2, image 59).. Miscellaneous: No inguinal hernias are seen. Mild ascites extends into the pelvis. Aorto bi-iliac bypass grafts appear present bilaterally. Bones: Unremarkable. IMPRESSION: 1. The patient carries a history of appendiceal carcinoma. No comparison films are available for review. There is definite evidence of neoplasm within the peritoneal space. Comparison CT scanning should be obtained to assess for global director air and climate change time. 2. High-grade small bowel obstruction appears centered in the right lower quadrant where there are peritoneal masses both anteriorly within the right pelvis and more p osteriorly in the expected region of the appendix. 3. Moderate ascites within the abdomen and pelvis, presumably evidence of peritoneal carcinomatosis. 4. There appears to be tumor infiltration surrounding the proximal right ureter, which also contains a double pigtail ureteral catheter in the setting of mild hydronephrosis on the right and the catheter being in normal position above and below. 5. Diminutive left kidney, etiology uncertain. Left hydronephrosis does not appear present. 6. Apparent aorto bi-iliac bypass grafts. No aneurysm or occlusion identified. Dictated by: Francis Zhao M.D. on 12/26/2020 at 15:43 Approved by: Francis Zhao M.D. on 12/26/2020 at 15:56 ECG Data Attestation: I personally reviewed and interpreted this ECG as follows: Interpretation: Sinus rhythm rate of 97 SC 142 QRS 84 and QTC 495. No significant ST elevation depression noted. ? U wave. Patient has prior EKG from 12/06/2020. MDM Narrative Medical decision making narrative: This is a pleasant 60-year-old female with known metastatic cancer of the abdomen. Patient came in today with concern for obstruction, CT confirms this as well and there is also some initial changes at the right ureter as well. Patient is quite clear that her goals are comfort and she does not wish for additional intervention. Patient was offered hospitalization for pain control but she defers at this time. She has morphine oral but we are going to give her increased prescription for Dilaudid p.o., patient also found viscous lidocaine helpful for her heartburn type symptoms and was given a prescription for this as well. We did discuss her potassium was low today, she was able to tolerate this orally. She does have appointment to establish with hospice on Tuesday. She was encouraged to return if they are unable to control her pain at home or she has any worsening symptoms and we are happy to see her here. Discharge Plan Departure Patient Disposition: Home Clinical Impression: Hypokalemia, Bowel obstruction, Hydroureter on right, Ascites Activity Restrictions/Additional Instructions: Follow-up with hospice on Tuesday. I would also recommend contacting your oncologist. Your imaging today does show bowel obstruction, there is also signs of an initial obstruction of the ureter on the right although this does not appear to be completely blocked. Your labs also show a low potassium which if it continues to trend downward can ultimately caused her heart to stop. You may take Dilaudid 1-2 mg every 4 hours as needed for pain. This medication can make you sleepy do not drive, perform hazardous activities or make any major decisions while taking it. This medication will make you constipated please marli e a stool softener once to twice daily until stools are soft and regular. You may also these viscous lidocaine every 6 hours as needed for heartburn. Prescription to [facility] in [place] Please return for persistent vomiting, intractable pain, passing out, or other new or concerning symptoms. Prescriptions: New hydromorphone [Dilaudid] 1 mg/mL liquid 1 mg PO Q4H PRN (Reason: pain) Qty: 100 RF: 0 lidocaine HCl [Lidocaine Viscous] 2 % solution 1 applic mucous membrane Q6H PRN (Reason: pain) Qty: 100 RF: 0 No Action ondansetron 4 mg tablet,disintegrating 4 mg PO TID-QID PRN (Reason: nausea and vomiting) Qty: 10 RF: 0 promethazine 25 mg tablet 25 mg PO TID PRN (Reason: nausea and vomiting) Qty: 30 RF: 0 potassium chloride 20 mEq tablet extended release 20 meq PO BID Qty: 14 RF: 0 pantoprazole [Protonix] 40 mg tablet,delayed release (DR/EC) 40 mg PO DAILY Qty: 30 RF: 0 promethazine 25 mg tablet 25 mg PO TID PRN (Reason: nausea and vomiting) Qty: 30 RF: 0 morphine 10 mg capsule,extend.release pellets 10 mg PO DAILY Qty: 30 RF: 0
--- NOTE | 2020-12-26 14:21 | DI.CT.S_ITS ---
PROCEDURE: CT ABDOMEN PELVIS W CON INDICATIONS: Abdominal pain, history of prior appendiceal cancer. TECHNIQUE: After the administration of oral and intravenous contrast, axial sections were acquired from the lung bases to the pubic symphysis. Coronal and sagittal reformats were performed. For radiation dose reduction, the following was used: automated exposure control, adjustment of mA and/or kV according to patient size. COMPARISON:None. FINDINGS: Image quality: Excellent. Lung bases: Unremarkable. Heart: No significant findings. ABDOMEN: Liver: Unremarkable except for mild intrahepatic biliary distension.. Gallbladder: Previously resected. Biliary ducts: Common duct dilated to 13 mm. Pancreas: Unremarkable. Spleen: Unremarkable. Adrenal Glands: Unremarkable. Kidneys and Ureters: Diminutive left kidney, hydronephrotic right kidney with what appears to be a double pigtail ureteral catheter crossing from bladder into the renal pelvis. There is abnormal soft tissue thickening along the retroperitoneum encasing the ureter superiorly on the right. This is best seen centered on series 2, image 41. Stomach and Bowel: Stomach contains fluid but is not overly distended . Small bowel loops are fluid dilated, measuring up to 4.6 cm in diameter through the abdomen and into the pelvisPeritoneum: There is abnormal intraperitoneal fluid best seen in the perihepatic and to a lesser degree the perisplenic spaces. It also interdigitates between small bowel loops. No free air. Ventral Wall: No hernia. Abdominal Nodes: No retroperitoneal or mesenteric adenopathy by size criteria. Vessels: Aorta and inferior vena cava are normal in size. PELVIS: Pelvic Organs: Unremarkable except for a small amount of fluid within the endometrial canal in this patient who is presumably postmenopausal. Bladder: Unremarkable. Pelvic Nodes: No enlarged lymph nodes but there is nodularity involving the anterior peritoneal space consistent with peritoneal carcinomatosis best seen centered on series 2, image 61 present at and just to the right of midline. Also, at the right lower quadrant there may be tumor nodularity in an area measuring up to 5.2 cm AP and 3.3 cm in the expected region of the appendix open (series 2, image 59).. Miscellaneous: No inguinal hernias are seen. Mild ascites extends into the pelvis. Aorto bi-iliac bypass grafts appear present bilaterally. Bones: Unremarkable. IMPRESSION: 1. The patient carries a history of appendiceal carcinoma. No comparison films are available for review. There is definite evidence of neoplasm within the peritoneal space. Comparison CT scanning should be obtained to assess for electronic data interchange specialist time. 2. High-grade small bowel obstruction appears centered in the right lower quadrant where there are peritoneal masses both anteriorly within the right pelvis and more posteriorly in the expected region of the appendix. 3. Moderate ascites within the abdomen and pelvis, presumably evidence of peritoneal carcinomatosis. 4. There appears to be tumor infiltration surrounding the proximal right ureter, which also contains a double pigtail ureteral catheter in the setting of mild hydronephrosis on the right and the catheter being in normal position above and below. 5. Diminutive left kidney, etiology uncertain. Left hydronephrosis does not appear present. 6. Apparent aorto bi-iliac bypass grafts. No aneurysm or occlusion identified. Dictated by: Francis Zhao M.D. on 12/26/2020 at 15:43 Approved by: Francis Zhao M.D. on 12/26/2020 at 15:56
[2020-12-26] MEDS: PANTOPRAZOLE 40 MG VIAL IV (14:51)
[2020-12-26] MEDS: MAG HYDROX/ALUMINUM/SIMETH SUS 20 ML, LIDOCAINE VISCOUS 2% 15 ML PO (14:51)
[2020-12-26] MEDS: POTASSIUM CHLORIDE 20 MEQ TAB 40 MEQ PO (14:52)
[2020-12-26] MEDS: HYDROMORPHONE 1 MG INJ IV ×2 (14:52→16:27)
[2020-12-26 15:00] VITALS: PULSE 60; O2SAT 95
[2020-12-26 15:46] VITALS: BP 193/105; PULSE 90; RESP 18; O2SAT 96
[2020-12-26 16:59] VITALS: BP 195/88; PULSE 71; RESP 12; O2SAT 95
[2020-12-26 18:17] VITALS: BP 201/111; PULSE 68; RESP 16; O2SAT 99
== END 2020-12-26 18:21 | disposition home or self-care (01) ==
PROVIDERS: Emergency Provider Emergency Medicine
DX: E87.6 Hypokalemia (principal); K56.609 Unspecified intestinal obstruction, unspecified as to partial versus complete obstruction; N13.4 Hydroureter; R18.8 Other ascites; R11.0 Nausea
CPT/HCPCS: 36415; 74177; 80053; 83690; 83735; 85025; 93005; 93010; 96374; 96375; 96376; 99284; C9113; J1170; J1642; J2270; J2405; Q9967